=== PATIENT | male | born 1940 | race Caucasian/White ===

== ENCOUNTER 2016-08-03 07:37 | Day surgery (SDC) | payer OTHER, BC ==
[~2016-08-03] VITALS: Ht 172.7 cm; Wt 86.2 kg
[~2016-08-03 07:37] MED LIST: CHLORTHALIDONE25 MG PO; CLONIDINE HCL0.1 MG PO; ECOTRIN325 MG PO; GLIPIZIDE5 MG PO; JANUVIA25 MG PO; KEFLEX500 MG PO; LO-DOSE ASPIRIN81 M1 PO; LOSARTAN POTASS50 MG PO; METOPROLOL SUC100 MG PO; METOPROLOL TART25 MG PO; OMEPRAZOLE40 M1 PO; SIMVASTATIN40 MG PO; STOOL SOFTENER100 M1 PO; WARFARIN SODIUM5 MG PO
[2016-08-03 08:38] LABS: POINT-OF-CARE METER ID UU13113696
== END 2016-08-03 11:35 | disposition home or self-care (01) ==
LOC: CATH 07:37
PROVIDERS: Surgery
DX: T82.858A Stenosis of other vascular prosthetic devices, implants and grafts, initial encounter (principal); Y83.2 Surgical operation with anastomosis, bypass or graft as the cause of abnormal reaction of the patient, or of later complication, without mention of misadventure at the time of the procedure; Z99.2 Dependence on renal dialysis; E11.22 Type 2 diabetes mellitus with diabetic chronic kidney disease; I12.0 Hypertensive chronic kidney disease with stage 5 chronic kidney disease or end stage renal disease; N18.6 End stage renal disease
CPT/HCPCS: 82948; C1725; C1769; C1894; J1644; J2250; J3010